=== PATIENT | female | born 1995 | race Caucasian/White ===

== ENCOUNTER 2018-05-26 15:24 | Emergency (ER) | payer OTHER ==
[~2018-05-26] VITALS: Ht 172.7 cm; Wt 66.7 kg
[2018-05-26] MEDS ORDERED: YAZ 28 TABLET1 EACH PO (15:38)
[2018-05-26] MEDS ORDERED: LAMICTAL200 MG PO (15:38)
[2018-05-26] MEDS ORDERED: VYVANSE40 MG PO (15:39)
[2018-05-26] MEDS ORDERED: TRAZODONE HCL50 MG PO (15:39)
[2018-05-26 15:57] LABS: URINE BLOOD 2+ (Negative); URINE CLARITY CLEAR; URINE COLOR YELLOW; URINE GLUCOSE-RANDOM* NEGATIVE (Negative); URINE KETONES TRACE (Negative); URINE LEUKOCYTES-REFLEX NEGATIVE (Negative); URINE NITRITE-REFLEX NEGATIVE (Negative); URINE PROTEIN (DIPSTICK) TRACE (Negative); URINE SPECIFIC GRAVITY 1.025 (1.005-1.035); URINE UROBILINOGEN 0.2 E.U./dl (0.2-1.0)
[2018-05-26 15:58] LABS: ICTOTEST (BILI CONFIRMATORY) Negative (Negative); URINE BILIRUBIN NEGATIVE (Negative)
[2018-05-26 16:08] LABS: BASOPHILS 0.5 % (0.0-2.0); EOSINOPHILS 1.3 % (0.0-3.0); HEMATOCRIT 42.3 % (37.0-47.0); HEMOGLOBIN 14.2 gm/dL (12.0-15.0); MCH 28.1 pg (26.0-34.0); MCHC 33.5 g/dL (28.0-37.0); MCV 83.8 fL (80.0-100.0); MONOCYTES 8.8 % (1.0-8.0); PLATELET COUNT 185 thou/uL (150-400); POLYS 65.4 % (36.0-66.0); RBC 5.05 mil/uL (4.20-5.00); RDW 15.6 % (10.5-14.5); WBC 4.7 thou/uL (4.0-11.0)
[2018-05-26 16:09] LABS: BACTERIA-REFLEX 1-9 Few /HPF (None Seen); CASTS None Seen /LPF (None Seen); CRYSTALS None Seen /LPF (None Seen); SQUAMOUS 0-3 Few /LPF (0-3); URINE RBC 0-2 Rare /HPF (0-2); URINE WBC-REFLEX >25 Many /HPF (0-5)
[2018-05-26 16:17] LABS: CALCIUM 9.7 mg/dL (8.5-10.1); CREATININE 0.8 mg/dL (0.6-1.0); POTASSIUM 3.5 mmol/L (3.5-5.1)
[2018-05-26 16:23] LABS: TOTAL BILIRUBIN 0.3 mg/dL (<0.1-1.0); TOTAL PROTEIN 7.8 g/dL (6.4-8.2)
[2018-05-26] MEDS ORDERED: ULTRAM 50MG TAB50 MG PO (19:36)
[2018-05-26 20:03] VITALS: BP 124/79
== END 2018-05-26 19:45 | disposition home or self-care (01) ==
LOC: ER 15:24
PROVIDERS: Physician Assistant
DX: N39.0 Urinary tract infection, site not specified (principal)